=== PATIENT | female | born 1990 | race Caucasian/White ===

== ENCOUNTER 2018-05-26 23:16 | Emergency (ER) | payer MEDICAID ==
[~2018-05-26] VITALS: Ht 149.9 cm; Wt 67.2 kg
[2018-05-27] MEDS: ACETAMINOPHEN 325MG TABLET PO PRN ×3 (00:21→01:14)
[2018-05-27 01:10] LABS: BASOPHILS % 0.2 % (0.0-2.0); EOSINOPHILS % 1.3 % (0.0-5.0); HEMATOCRIT. 38.7 % (36.0-48.0); HEMOGLOBIN. 13.8 g/dL (12.0-16.0); LYMPHOCYTES % 27.4 % (20.0-50.0); MEAN CORPUSCULAR HEMOGLOBIN 30.9 pg (28.0-32.0); MEAN CORPUSCULAR VOLUME 86.7 fL (81.0-99.0); MEAN PLATELET VOLUME 7.1 fl (7.4-10.4); MONOCYTES % 8.7 % (2.0-8.0); NEUTROPHILS % 62.4 % (40.0-76.0); PLATELET 364 x1000/uL (130-400); RED BLOOD CELL COUNT 4.47 mill/uL (4.2-5.4); RED CELL DISTRIBUTION WIDTH 12.8 % (11.6-14.6)
[2018-05-27 01:18] LABS: CHLORIDE 105 mEq/L (98-107)
[2018-05-27 01:29] LABS: CLARITY URINE CLOUDY (CLEAR); COLOR URINE YELLOW (YELLOW); KETONES URINE NEGATIVE (NEGATIVE); LEUKOCYTE ESTERASE URINE 2+ (NEGATIVE); NITRITE URINE NEGATIVE (NEGATIVE); OCCULT BLOOD URINE NEGATIVE (NEGATIVE); PROTEIN URINE NEGATIVE (NEGATIVE); SPECIFIC GRAVITY URINE 1.024 (1.005-1.030); UROBILINOGEN URINE 0.2 E.U./dL (0.2-1.0)
[2018-05-27 01:45] LABS: B-HCG QUANTITATIVE 77342 mIU/mL (<3)
[2018-05-27 02:16] VITALS: BP 115/70
== END 2018-05-27 02:18 | disposition home or self-care (01) ==
LOC: ER 23:16
DX: O23.11 Infections of bladder in pregnancy, first trimester (principal); Z3A.11 11 weeks gestation of pregnancy
CPT/HCPCS: 36415; 76801; 76817; 80048; 81003; 84702; 85025; 86850; 86900; 86901; 87086; 99285; J7030; Z7610